=== PATIENT | male | born 1960 | race Caucasian/White ===

== ENCOUNTER 2018-12-10 01:42 | Emergency (ER) | payer SELFPAY ==
--- NOTE | 2018-12-10 02:51 | ER Document Report ---
ED General - General Chief Complaint: Jaw Pain Stated Complaint: SWOLLEN JAW Time Seen by Provider: 12/10/18 02:41 Notes: Patient is a pleasant 58-year-old male who presents with complaint of swelling to the left lower control left lower face. This started suddenly tonight. He woke up like this. No fevers. No dental pain. No difficulty breathing or swallowing. No swelling to the neck. This has never happened before. He does not take any medications and is otherwise healthy. TRAVEL OUTSIDE OF THE [place] IN LAST 30 DAYS: No - Related Data Allergies/Adverse Reactions: No Known Allergies Allergy (Unverified 03/28/13 23:35) Past Medical History - Social History Smoking Status: Unknown if Ever Smoked Frequency of alcohol use: None Drug Abuse: None Family History: Reviewed & Not Pertinent - Past Medical History Cardiac Medical History: Denies: Hx Coronary Artery Disease Pulmonary Medical History: Denies: Hx Asthma, Hx COPD Renal/ Medical History: Denies: Hx Renal Insufficiency Psychiatric Medical History: Denies: Hx Depression - Immunizations Hx Diphtheria, Pertussis, Tetanus Vaccination: Yes Review of Systems - Review of Systems Notes: My Normal Review Basic REVIEW OF SYSTEMS: CONSTITUTIONAL : Denies fever, chills, or sweats. Denies recent illness. EENT: Left sided facial swelling. RESPIRATORY: Denies cough, cold, or chest congestion. Denies shortness of breath, difficulty breathing, or wheezing. GASTROINTESTINAL: Denies abdominal pain. Denies nausea, vomiting, or diarrhea. MUSCULOSKELETAL: Denies neck or back pain or joint pain or swelling. SKIN: Denies rash or skin lesions. NEUROLOGICAL: Denies altered mental status or loss of consciousness. Denies headache. Denies weakness or paralysis or loss of use of either side. Denies problems with gait or speech. Denies sensory or motor loss. ALL OTHER SYSTEMS REVIEWED AND NEGATIVE. Physical Exam - Vital signs Vitals: Temp Pulse Resp BP Pulse Ox 98.7 F 88 17 164/104 H 97 12/10/18 01:44 12/10/18 01:44 12/10/18 01:44 12/10/18 01:44 12/10/18 01:44 - Notes Notes: General Appearance: Well nourished, alert, cooperative, no acute distress, no obvious discomfort. Well appearing. Difficulty breathing or swallowing. No stridor. Vitals: reviewed, See vital signs table. Head: Obvious swelling just above the left jaw. Eyes: PERRL, EOMI, Conjuctiva clear Mouth: Some dental caries. Patient has had previous removal of left lower premolar. Throat: No tonsillar inflammation, No airway obstruction, No lymphadenopathy Neck: Supple, no neck tenderness, No swelling Skin: warm, dry, appropriate color, no rash Neuro: speech clear, oriented x 3, normal affect, responds appropriately to questions. Course - Re-evaluation Re-evalutation: 12/10/18 05:56 Patient has what appears to be a developing dental abscess. He says his [id number] is a local dentist and he would like to follow-up with him in regards to this. Informed him to follow-up with his [id number] today. We will start him on antibiotics. Currently does not have any swelling below the jaw. All the swelling is well above the mandible in the left side. I informed him that if the swelling gets below his jaw that he must return to ER im mediately as this could eventually lead to difficulty breathing or swallowing. I informed that he must return to ER immediately if he does have any difficulty breathing or swelling, any swelling below the mandible, fevers, or if he feels his swelling is worsening in any way. Patient does have hypertension. He says he was actually prescribed a medication for hypertension in 2014. He never filled the prescription. Informed him that he should have his blood pressure treated and therefore offered to write him a prescription for blood pressure medication. Patient says he will not take it. He says he prefers not to take any medications. I informed him prolonged blood pressure can lead to things such as heart attacks and strokes. Patient says he is very understanding of this but says he still prefers not to take any medications and therefore said even if I wrote a prescription he would not fill it. I encouraged him return to ER anytime if he wants reevaluation and treatment of his high blood pressure. Patient agrees with plan and will be discharged home. I did give patient a copy of his CT scan on a CD so he can take it to his dentist today with his follow- up. Dictation of this chart was performed using voice recognition software; therefore, there may be some unintended grammatical errors. - Vital Signs Vital signs: Temp Pulse Resp BP Pulse Ox 97.7 F 73 16 197/90 H 98 05/28/19 04:52 12/10/18 04:52 12/10/18 04:52 12/10/18 04:52 12/10/18 04:52 Discharge - Discharge Clinical Impression: Dental infection Condition: Stable Disposition: HOME, SELF-CARE Additional Instructions: You have a dental infection which may be started forming dental abscess. It is important to follow-up with your dentist today. Please follow-up with your dentist today. He may refer you to a oral surgeon or he may treat the infection himself. I have given you a dose of a steroid called Decadron as well as the first dose of clindamycin. Please fill your prescription immediately so you can continue taking the antibiotic. Please have a low threshold to return to the ER if you have increasing swelling, fevers, or any swelling below the jaw. If you develop swelling below the jaw this can affect your ability to breathe and therefore you need to come to the ER immediately if you feel like the swelling is starting to encroach below the jaw. Prescriptions: RX: Clindamycin HCl [Cleocin 150 mg Capsule] 300 mg PO Q6 #56 capsule Forms: Return to Work
--- NOTE | 2018-12-10 04:02 | RADIOLOGY REPORT (SQ) ---
EXAM DESCRIPTION: CT MAXILLOFACIAL WITHOUT IV CONTRAST COMPLETED DATE/TME: 12/10/2018 02:46 CLINICAL HISTORY: 58 years, Male, left sided facial swelling COMPARISON: 03/28/2013 CT facial bones TECHNIQUE: 237 Images stored on PACS. All CT scanners at this facility use dose modulation, iterative reconstruction, and/or weight based dosing when appropriate to reduce radiation dose to as low as reasonably achievable (ALARA). [facility]: Dose Right [facility]: CareDose [facility]: Dose Right [facility]: Teradose 4D [facility]: [employer] LIMITATIONS: None. FINDINGS: The globes are intact. Soft tissue swelling along the left face and cheek, superficial to the left mandible. A more focal area of density in this region is noted which could reflect posttraumatic inflammation, however an infectious process with developing abscess should be considered in the appropriate clinical setting. Potential abscess measures 2.2 x 2.1 cm. No acute underlying fracture. There is periapical lucency associated with the adjacent left mandibular molar suspicious for periapical abscess. The paranasal sinuses are well aerated. No discrete facial bone fracture IMPRESSION: Severe soft tissue swelling superficial to the left mandible with possible developing abscess and adjacent phlegmon. Periapical lucency associated with the posterior most left mandibular molar, worrisome for periapical abscess TECHNICAL DOCUMENTATION: Quality ID # [id number]: Final reports with documentation of one or more dose reduction techniques (e.g., Automated exposure control, adjustment of the mA and/or kV according to patient size, use of iterative reconstruction technique) copyright 2011 [employer]- All Rights Reserved
[2018-12-10] MEDS ORDERED: CLINDAMYCIN HCL 150 MG CAPSULE PO ONE (04:22)
[2018-12-10] MEDS ORDERED: DEXAMETHASONE SOD PHOS INJ 10 MG/1 ML VIAL IM ONE (04:22)
[2018-12-10 04:54] VITALS: BP 197/90
== END 2018-12-10 05:07 | disposition home or self-care (01) ==
LOC: ER 01:42
DX: K04.7 Periapical abscess without sinus (principal); R68.84 Jaw pain
CPT/HCPCS: 99283; 96372; 70486; J1100